=== PATIENT | female | born 1975 | race Caucasian/White ===

== ENCOUNTER 2016-10-31 13:55 | Emergency (ER) | payer BC ==
[~2016-10-31] VITALS: Ht 154.9 cm; Wt 72.6 kg
[2016-10-31 14:20] VITALS: BP 139/94
--- NOTE | 2016-10-31 15:38 | NUR ---
Pt ambulated to bed 7.
--- NOTE | 2016-10-31 15:40 | NUR ---
41/F presents to ED for evaluation of right lower back pain x 1 week. Patient denies any injury or trauma. Pt states the pain started suddenly while walking in her home. Pt c/o 8/10 pain, dull, non radiating, constant pain. Patient states she was seen at urgent care, was given a shot for pain and prescribed medications for pain. Patient is AOX4, ambulatory with steady gait. Pt prefers to sit in chair at bedside for comfort.
--- NOTE | 2016-10-31 15:49 | NUR ---
Patient being evaluated by physician at bedside.
--- NOTE | 2016-10-31 15:54 | NUR ---
Patient taken to CT via w/c.
--- NOTE | 2016-10-31 16:02 | NUR ---
Patient returned from CT.
--- NOTE | 2016-10-31 16:31 | NUR ---
Dr. Baugh re-evaluating patient at bedside.
[2016-10-31 16:44] VITALS: BP 139/94
--- NOTE | 2016-10-31 16:45 | NUR ---
Patient discharged with v/s stable. Written and verbal after care instructions given and explained. Patient verbalized understanding. Ambulatory with steady gait. All questions addressed prior to discharge. Advised to follow up with PMD.
== END 2016-10-31 16:45 | disposition home or self-care (01) ==
LOC: MED 13:55
DX: M54.41 Lumbago with sciatica, right side (principal); M19.90 Unspecified osteoarthritis, unspecified site; R03.0 Elevated blood-pressure reading, without diagnosis of hypertension